=== PATIENT | female | born 1960 | race Caucasian/White ===

== ENCOUNTER 2018-08-01 19:56 | Inpatient (IN) ==
[2018-08-01] MEDS: Heparin 25,000 UNIT/500 ML D5W 25,000 UNIT/500 ML BAG IVC SCH (22:00)
[2018-08-01] MEDS: Nitroglycerin 25 MG/250 ML INFUS..BTL IVC SCH (23:18)
--- NOTE | 2018-08-01 23:28 | Internal Med History&Physical ---
Date of Encounter: 08/01/18 Internal Medicine - H&P: HPI History of present illness: Ms. Hess is a 58 year old female Past Med Surg Social Fam HX - Past Medical History Medical history: diabetes, GERD, hyperlipidemia, hypertension, kidney stones, other Additional medical history: angina, diabetic neuropathy Psychiatric history: anxiety, depression - Past Surgical History Surgical History: other Additional surgical history: Tubal ligation. Carpal tunnel. cardiac cath, no stents - Social History Smoking Status: Never smoker Smokeless Tobacco Status: No Alcohol use: none Drug use: none - Family History Mother Hx Family Cardiac Disorders: Yes Internal Medicine - H&P: Meds Aspirin 81 mg PO DAILY 06/05/16 [History] Citalopram [CeleXA] 20 mg PO DAILY 06/05/16 [History] Lisinopril [Zestril] 20 mg PO DAILY 06/05/16 [History] Metoprolol XL (24 HR) Succ [Toprol Xl] 25 mg PO DAILY 06/05/16 [History] Nitroglycerin [Nitrostat] 0.4 mg SL DAILY PRN 06/05/16 [History] Simvastatin [Zocor] 40 mg PO QPM 06/05/16 [History] hydroCHLOROthiazide [Hydrochlorothiazide] 25 mg PO DAILY 06/05/16 [History] metFORMIN [Glucophage] 500 mg PO DAILY 06/05/16 [History] Gabapentin [Neurontin] 300 mg PO HS 02/12/17 [History] Meloxicam [Mobic] 15 mg PO DAILY 02/12/17 [History] Multivitamin [One Daily Multivitamin] 1 each PO DAILY 02/12/17 [History] OxyCODONE/APAP 10/325 [Percocet 10/325 MG] 1 each PO Q6HR PRN #26 tablet 02/12/17 [Rx] Cyclobenzaprine [Flexeril] 10 mg PO TID 08/01/18 [History] Dicyclomine Hcl [Bentyl] 20 mg PO QID 08/01/18 [History] Levothyroxine [Synthroid] 25 mcg PO DAILY 08/01/18 [History] Lidocaine Patch [Lidoderm 5% patch] 1 each TP DAILY 08/01/18 [History] Melatonin [Melatin] 3 mg PO HS 08/01/18 [History] raNITIdine HCl [Zantac] 150 mg PO BID 08/01/18 [History] Allergy/AdvReac Type Severity Reaction Status Date / Time No Known Allergies Allergy Verified 02/12/17 11:59 All Systems PM: A 10-system review of systems was performed and is negative for pertinent findings except as documented above in the HPI. - Constitutional Vitals: Temp Pulse Resp BP Pulse Ox 98.2 F 100 14 166/82 98 08/01/18 22:22 08/01/18 22:22 08/01/18 22:22 08/01/18 22:22 08/01/18 22:22 - Time Spent With Patient Total time spent is greater than 50% in coordination of care (as documented) at patient's floor/unit and/or counseling patient:
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
[2018-08-02] MEDS ORDERED: Naloxone 0.4 MG/ML INJ IVP PRN (00:29)
[2018-08-02] MEDS ORDERED: D5% in Water 1,000 ML IVC PRN (00:32)
[2018-08-02] MEDS ORDERED: *HR* Dextrose 50 % in Water (Syg) 50 ML SYRINGE IVP PRN (00:32)
[2018-08-02] MEDS ORDERED: Dextrose Gel 15 GM/37.5 ML TUBE PO PRN ×2 (00:32)
[2018-08-02] MEDS ORDERED: *HR* Heparin 5,000 UNIT/ML VIAL IVP PRN (02:30)
[2018-08-02] MEDS ORDERED: *HR* Heparin 5,000 UNIT/ML VIAL IVP ONE (02:30)
[2018-08-02 06:38] LABS: Prothrombin Time 11.8 Seconds (9.4-12.1)
[2018-08-02 06:39] LABS: Activated Partial Thrombo Time 47.7 Seconds (26.0-36.0)
[2018-08-02 06:41] LABS: Hematocrit 37.5 % (35.3-44.9); Hemoglobin 12.5 g/dL (11.5-15.4); Mean Corpuscular HGB Conc 33.3 g/dL (31.6-35.5); Mean Corpuscular Hemoglobin 29.6 pg (28.0-33.3); Mean Corpuscular Volume 88.9 fL (83.0-100.0); Mean Platelet Volume 10.3 fL (9.4-12.4); Platelet Count 378 K/mcL (140-400); Red Blood Count 4.22 M/mcL (3.82-4.97); Red Cell Distribution Width 12.6 % (11.5-14.5)
[2018-08-02 06:42] LABS: Basophils % 0.4 %; Eosinophils # 0.1 K/mcL (0.0-0.6); Eosinophils % 0.8 %; Hemoglobin 12.8 g/dL (11.5-15.4); Immature Granulocytes % 0.1 % (0-4); Lymphocytes # 2.8 K/mcL (0.6-4.6); Lymphocytes % 33.4 %; Mean Corpuscular HGB Conc 32.8 g/dL (31.6-35.5); Mean Corpuscular Hemoglobin 29.4 pg (28.0-33.3); Mean Corpuscular Volume 89.4 fL (83.0-100.0); Mean Platelet Volume 10.7 fL (9.4-12.4); Monocytes # 0.7 K/mcL (0.0-1.3); Monocytes % 8.3 %; Neutrophils # 4.8 K/mcL (1.6-8.9); Platelet Count 392 K/mcL (140-400); Red Blood Count 4.36 M/mcL (3.82-4.97); Red Cell Distribution Width 12.4 % (11.5-14.5)
[2018-08-02 06:53] LABS: Alanine Aminotransferase 23 Units/L (7-52); Albumin 4.2 g/dL (3.5-5.7); Albumin/Globulin Ratio 1.5 (1.1-2.2); Alkaline Phosphatase 86 Units/L (34-104); Aspartate Amino Transferase 23 Units/L (13-39); BUN/Creatinine Ratio 31 (6-26); Bilirubin,Total 0.4 mg/dL (0.3-1.0); Blood Urea Nitrogen 18 mg/dL (8-23); Calcium 9.3 mg/dL (8.6-10.3); Carbon Dioxide 25 mEq/L (23-29); Chloride 101 mEq/L (98-107); Chol/HDL Ratio 3.4 (0-4.9); Cholesterol 184 mg/dL (< 200); Globulin 2.8 g/dL (2.4-3.5); Glucose 125 mg/dL (70-105); HDL Cholesterol 54 mg/dL (40-59); LDL Cholesterol,Calculated 102 mg/dL (0-99); Magnesium 1.8 mg/dL (1.6-2.6); Osmolality,Calculated 287 (280-300); Phosphorous 3.8 mg/dL (2.7-4.5); Potassium 3.8 mEq/L (3.5-5.1); Sodium 137 mEq/L (136-145); Triglycerides 139 mg/dL (< 150); eGFR For Non-African Americans > 60 (> 60)
[2018-08-02] MEDS: *HR* Heparin 5,000 UNIT/ML VIAL IVP PRN (07:34)
[2018-08-02] MEDS: Insulin LISPRO 300 UNITS/3 ML VIAL SQ SCH ×4 (07:36→19:48)
[2018-08-02] MEDS ORDERED: D5% in 0.45% NACL 1,000 ML IVC SCH (08:30)
[2018-08-02] MEDS: Aspirin Enteric Coated 81 MG Tablet PO SCH (09:52)
[2018-08-02] MEDS: Metoprolol XL (24 HR) Succ 25 MG TAB.ER.24H PO SCH (09:52)
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
[2018-08-02] MEDS ORDERED: Insulin LISPRO 300 UNITS/3 ML VIAL SQ SCH (12:00)
[2018-08-02] MEDS: Heparin 25,000 UNIT/500 ML D5W 25,000 UNIT/500 ML BAG IVC SCH (13:28)
--- NOTE | 2018-08-02 15:11 | Internal Med Progress Note ---
Hospitalist Progress Note - Encounter Date of Encounter: 08/02/18 Time of Encounter: 15:09 - Subjective Interval History: I have seen and evaluated the patient at bedside. she reports that the chest pain has improved and it is about a 3/10 now. denies shortness of breath, nausea or vomiting. - Exam Vitals: Temp Pulse Resp BP Pulse Ox 98.2 F 80 17 141/80 93 08/02/18 11:29 08/02/18 11:29 08/02/18 11:29 08/02/18 11:29 08/02/18 11:29 Exam: Vitals: Reviewed. General: Alert and oriented x4. In mild distress due to chest discomfort Skin: Normal color, no rash, no lesions. HEENT: EOM, pupils equal, round and reactive. Cardiovascular: RRR, Normal S1 & S2, no rubs, murmurs or gallops. Lungs: CTA b/l, no wheezes or crackles. Abdomen: Soft, non-tender, no rigidity. Extremities: No deformity, no edema or tenderness, no joint swelling or clubbing. Neurological: Normal cognition and motor skills. Rest of the physical exam is non contributory - Assessment and Plan (1) Chest pain Current Visit: Yes Status: Acute Assessment and Plan: improving chest pain. patient evaluated by cardiolgy service, recommended medical management and possible LHC on Saturday. continue heparin drip, aspirin, statin and bb Nitroglycerin 0.4mg/PO Q5mins x3 for chest pain PRN (2) Diabetes Current Visit: Yes Status: Chronic Assessment and Plan: blood sugar has been well controlled. will start carb controlled diet and NPO at Midnight on Saturday continue Lispro medium dose sliding scale ac. (3) Hyperlipidemia Current Visit: Yes Status: Chronic Assessment and Plan: Continue simvastatin 20 mg by mouth at bedtime. (4) Hypertension Current Visit: Yes Status: Chronic Assessment and Plan: BP has been well controlled. Continue metoprolol 25 mg by mouth daily. (5) Hypothyroidism Current Visit: Yes Status: Chronic Assessment and Plan: We will resume home medication. On levothyroxine 25mcg/PO Daily. DVT Prophylaxis: Patient is a heparin drip due to chest pain possible unstable angina. - Summary of Assessment and Plan Summary of Assessment and Plan: Patient to remain in the hospital due to chest pain possible unstable angina, is scheduled for possible [facility] on Saturday. - Time Spent with Patient Total time spent is greater than 50% in coordination of care (as documented) at patient's floor/unit and/or counseling patient: Greater than 35 minutes (45) Plan of Care Discussed with: patient (and the nurse.) Internal Medicine: Result - Labs CBC & Chem 7: 08/02/18 06:10 08/02/18 06:10 Labs: Short CBC 08/02/18 08/02/18 Range/Units 06:10 06:10 WBC 8.4 8.1 (4.3-11.1) K/mcL Hgb 12.8 12.5 (11.5-15.4) g/dL Hct 39.0 37.5 (35.3-44.9) % Plt Count 392 378 (140-400) K/mcL Neutrophils # 4.8 (1.6-8.9) K/mcL BMP 08/02/18 06:10 Sodium 137 Potassium 3.8 Chloride 101 Carbon Dioxide 25 BUN 18 Creatinine 0.58 L Glucose 125 H Calcium 9.3 Cardiac Enzymes 08/01/18 08/02/18 Range/Units 23:27 06:10 Troponin I 0.07 H* 0.04 H* (< 0.04) ng/mL Liver Function 08/02/18 Range/Units 06:10 Total Bilirubin 0.4 (0.3-1.0) mg/dL AST 23 (13-39) Units/L ALT 23 (7-52) Units/L Alkaline Phosphatase 86 (34-104) Units/L Albumin 4.2 (3.5-5.7) g/dL - ABG Interpretation ABG results: PT/INR, D-dimer PT 11.8 Seconds (9.4-12.1) 08/02/18 06:10 Consult Discharge Plan - Plan Referrals: Theresa Shields [Primary Care Provider] - (1) Chest pain Qualifiers: Chest pain type: chest pain due to myocardial ischemia Ischemic chest pain type: unspecified angina pectoris type Qualified Code(s): I25.9 - Chronic ischemic heart disease, unspecified (2) Diabetes Qualifiers: Diabetes mellitus type: type 2 Diabetes mellitus terminal operations manager insulin use: without intermediate use Diabetes mellitus complication status: without complication Qualified Code(s): E11.9 - Type 2 diabetes mellitus without complications (3) Hyperlipidemia Qualifiers: Hyperlipidemia type: unspecified Qualified Code(s): E78.5 - Hyperlipidemia, unspecified (4) Hypertension Qualifiers: Hypertension type: essential hypertension Qualified Code(s): I10 - Essential (primary) hypertension (5) Hypothyroidism Qualifiers: Hypothyroidism type: unspecified Qualified Code(s): E03.9 - Hypothyroidism, unspecified
[2018-08-03 04:35] LABS: Basophils # 0.1 K/mcL (0.0-0.2); Basophils % 0.6 %; Eosinophils # 0.1 K/mcL (0.0-0.6); Eosinophils % 1.3 %; Hematocrit 37.5 % (35.3-44.9); Hemoglobin 12.7 g/dL (11.5-15.4); Immature Granulocytes % 0.2 % (0-4); Lymphocytes # 3.7 K/mcL (0.6-4.6); Lymphocytes % 39.5 %; Mean Corpuscular HGB Conc 33.9 g/dL (31.6-35.5); Mean Corpuscular Hemoglobin 30.2 pg (28.0-33.3); Mean Corpuscular Volume 89.1 fL (83.0-100.0); Mean Platelet Volume 10.5 fL (9.4-12.4); Monocytes # 0.8 K/mcL (0.0-1.3); Neutrophils # 4.7 K/mcL (1.6-8.9); Platelet Count 372 K/mcL (140-400); Red Blood Count 4.21 M/mcL (3.82-4.97); Red Cell Distribution Width 12.6 % (11.5-14.5); Segmented Neutrophils % 50.4 %
[2018-08-03 04:53] LABS: BUN/Creatinine Ratio 23 (6-26); Blood Urea Nitrogen 15 mg/dL (8-23); Calcium 9.2 mg/dL (8.6-10.3); Carbon Dioxide 25 mEq/L (23-29); Chloride 104 mEq/L (98-107); Glucose 130 mg/dL (70-105); Magnesium 1.9 mg/dL (1.6-2.6); Osmolality,Calculated 287 (280-300); Phosphorous 3.7 mg/dL (2.7-4.5); Potassium 3.8 mEq/L (3.5-5.1); Sodium 137 mEq/L (136-145); eGFR For Non-African Americans > 60 (> 60)
[2018-08-03] MEDS: Levothyroxine 25 MCG TABLET PO SCH (05:33)
--- NOTE | 2018-08-03 07:02 | Event Note ---
Date of Encounter: 08/03/18 Time of Encounter: 06:29 Informed by nurse of patient reporting increased chest pain. Assessed patient at bedside. EKG obtained shows sinus rhythm. Pain now decreasing with increase in nitro drip. Vitals stable with slightly elevated blood pressure from baseline with systolic in 160's, now decreasing to 130's and patient reporting decrease in chest pain and feeling much more comfortable. Troponin ordered. Advised staff to notify of any changes.
[2018-08-03] MEDS: Insulin LISPRO 300 UNITS/3 ML VIAL SQ SCH ×4 (08:00→20:40)
[2018-08-03] MEDS: Aspirin Enteric Coated 81 MG Tablet PO SCH (09:21)
[2018-08-03] MEDS: Metoprolol XL (24 HR) Succ 25 MG TAB.ER.24H PO SCH (09:21)
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
[2018-08-03] MEDS: Heparin 25,000 UNIT/500 ML D5W 25,000 UNIT/500 ML BAG IVC SCH ×2 (12:44→12:46)
[2018-08-03] MEDS: Nitroglycerin 25 MG/250 ML INFUS..BTL IVC SCH ×2 (12:45→12:46)
--- NOTE | 2018-08-03 13:28 | Internal Med Progress Note ---
Hospitalist Progress Note - Encounter Date of Encounter: 08/03/18 Time of Encounter: 13:25 - Subjective Interval History: I have seen and evaluated the patient at bedside. Patient reports no chest pain during my evaluation, but reports that she had an episode of chest pain today morning. denies headache, nausea or vomiting. - Exam Vitals: Temp Pulse Resp BP Pulse Ox 98.0 F 71 16 128/71 93 08/03/18 10:57 08/03/18 10:57 08/03/18 10:57 08/03/18 10:57 08/03/18 10:57 Exam: Vitals: Reviewed. General: Alert and oriented x4. In mild distress due to concern about potential results of LHC Skin: Normal color, no rash, no lesions. Cardiovascular: RRR, Normal S1 & S2, no rubs, murmurs or gallops. Lungs: CTA b/l, no wheezes or crackles. Abdomen: Soft, non-tender, no rigidity. NABS in all 4 quadrants. Extremities: No edema Neurological: Normal cognition. CN II-XII intact. Rest of the physical exam is non contributory - Assessment and Plan (1) Chest pain Current Visit: Yes Status: Acute Assessment and Plan: possible unstable angina patient on a nitro drip, consider titrating of if patient remains chest pain free scheduled for [facility] tomorrow heparin drip Continue metoprolol 25 mg by mouth daily. Neurology recommendation appreciated. On aspirin 81 mg by mouth Nothing by mouth at midnight (2) Diabetes Current Visit: Yes Status: Chronic Assessment and Plan: Blood sugar has been well controlled. Continue carb controlled diet. Lispro sliding scale medium dose before meals. (3) Hyperlipidemia Current Visit: Yes Status: Chronic Assessment and Plan: Continue simvastatin 40 mg by mouth daily. (4) Hypertension Current Visit: Yes Status: Chronic Assessment and Plan: Blood pressure has been well controlled. Patient on metoprolol 25 mg by mouth daily. (5) Hypothyroidism Current Visit: Yes Status: Chronic Assessment and Plan: On levothyroxine 25mcg/PO Daily. DVT Prophylaxis: Patient is on heparin drip. - Summary of Assessment and Plan Summary of Assessment and Plan: Patient is a scheduled for a [facility] tomorrow morning - Time Spent with Patient Total time spent is greater than 50% in coordination of care (as documented) at patient's floor/unit and/or counseling patient: Greater than 35 minutes (40) Plan of Care Discussed with: patient (and the nurse.) Internal Medicine: Result - Labs CBC & Chem 7: 08/03/18 03:46 08/03/18 03:46 Labs: Short CBC 08/03/18 Range/Units 03:46 WBC 9.4 (4.3-11.1) K/mcL Hgb 12.7 (11.5-15.4) g/dL Hct 37.5 (35.3-44.9) % Plt Count 372 (140-400) K/mcL Neutrophils # 4.7 (1.6-8.9) K/mcL BMP 08/03/18 03:46 Sodium 137 Potassium 3.8 Chloride 104 Carbon Dioxide 25 BUN 15 Creatinine 0.65 Glucose 130 H Calcium 9.2 Cardiac Enzymes 08/03/18 Range/Units 06:47 Troponin I < 0.03 (< 0.04) ng/mL - ABG Interpretation ABG results: PT/INR, D-dimer PT 11.8 Seconds (9.4-12.1) 08/02/18 06:10 - Impressions Impressions Echocardiogram 08/02/18 02:34 Impressions: LVEF 65%. Normal LV chamber size, wall thickness and systolic function. Mild left ventricular diastolic dysfunction. Normal right ventricular structure and function. No significant valvular dysfunction. No pulmonary hypertension. Left Ventricular Wall Motion: Rest Echo Findings All wall segments showed normal motion. Findings: Study Quality * Technically adequate exam. ECG Findings * Normal sinus rhythm. Left Ventricle * LVEF 65%. * Normal LV chamber size, wall thickness and systolic function. * Mild left ventricular diastolic dysfunction. Right Ventricle * Normal right ventricular structure and function. Left Atrium * Normal left atrial size. Right Atrium * Normal right atrial size. Interatrial Septum * Interatrial septum not well evaluated. * No evidence of PFO by color Doppler. Aortic Valve * Trileaflet aortic valve with normal function. * No aortic stenosis. * No aortic regurgitation. Mitral Valve * Normal mitral valve structure. * No mitral stenosis. * Trace mitral regurgitation. Tricuspid Valve * Normal tricuspid valve structure. * No tricuspid stenosis. * Trace tricuspid regurgitation. * Estimated RVSP is 19 mmHg. * Estimated RA pressure is 3 mmHg. * No pulmonary hypertension. Pulmonic Valve * Pulmonic valve is not well visualized. * No pulmonic stenosis. * No pulmonic regurgitation. Aorta * Normally sized aortic root. Pericardium * The pericardium appears normal. IVC * Normal IVC dimensions and inspiratory collapse. Consult Discharge Plan - Plan Referrals: Theresa Shields [Primary Care Provider] - (1) Chest pain Qualifiers: Chest pain type: chest pain due to myocardial ischemia Ischemic chest pain type: unspecified angina pectoris type Qualified Code(s): I25.9 - Chronic ischemic heart disease, unspecified (2) Diabetes Qualifiers: Diabetes mellitus type: type 2 Diabetes mellitus residential insulin use: without residential use Diabetes mellitus complication status: without complication Qualified Code(s): E11.9 - Type 2 diabetes mellitus without complications (3) Hyperlipidemia Qualifiers: Hyperlipidemia type: unspecified Qualified Code(s): E78.5 - Hyperlipidemia, unspecified (4) Hypertension Qualifiers: Hypertension type: essential hypertension Qualified Code(s): I10 - Essential (primary) hypertension (5) Hypothyroidism Qualifiers: Hypothyroidism type: unspecified Qualified Code(s): E03.9 - Hypothyroidism, unspecified
[2018-08-03] MEDS: *HR* Heparin 5,000 UNIT/ML VIAL IVP PRN (23:47)
[2018-08-04] MEDS: Levothyroxine 25 MCG TABLET PO SCH (05:16)
[2018-08-04] MEDS: Insulin LISPRO 300 UNITS/3 ML VIAL SQ SCH ×2 (07:45→15:53)
[2018-08-04] MEDS: Aspirin Enteric Coated 81 MG Tablet PO SCH (07:50)
[2018-08-04] MEDS: Metoprolol XL (24 HR) Succ 25 MG TAB.ER.24H PO SCH (07:50)
--- NOTE | 2018-08-04 10:26 | Internal Med Progress Note ---
Hospitalist Progress Note - Encounter Date of Encounter: 08/04/18 Time of Encounter: 10:23 - Subjective Interval History: I have seen and evaluated the patient at bedside. Patient reports 3 out of 5 pressure-like chest discomfort, she denies shortness of breath or lightheadedness. - Exam Vitals: Temp Pulse Resp BP Pulse Ox 97.7 F 76 16 134/69 94 08/04/18 06:40 08/04/18 06:40 08/04/18 06:40 08/04/18 06:40 08/04/18 06:40 Exam: Vitals: Reviewed. General: Alert and oriented x4. In mild distress due to chest pressure. Skin: Normal color, no rash, no lesions. Cardiovascular: RRR, Normal S1 & S2, no rubs, murmurs or gallops. Lungs: CTA b/l, no wheezes or crackles. Abdomen: Soft, non-tender, no rigidity. NABS in all 4 quadrants. Extremities: No edema. Strength is 5 out of 5 in the upper and lower extremity. Neurological: Normal cognition. CN II-XII intact. Rest of the physical exam is non contributory - Assessment and Plan (1) Chest pain Current Visit: Yes Status: Acute Assessment and Plan: Possible unstable angina. Patient is a scheduled for a [facility] On a nitro and Heparin drip NPO D5NS@50mls/hr for maintenance fluid, to avoid hypoglycemia Accu checks every 6 hours plus lispro sliding scale low-dose every 6 hours. Continue metoprolol 25 mg by mouth daily. On aspirin 81 mg by mouth daily. (2) Diabetes Current Visit: Yes Status: Chronic Assessment and Plan: Blood sugar has been well controlled. Patient is nothing by mouth for procedure, on Accu-Cheks every 6 hours. Plus lispro sliding scale low-dose every 6 hours. (3) Hyperlipidemia Current Visit: Yes Status: Chronic Assessment and Plan: Continue simvastatin. (4) Hypertension Current Visit: Yes Status: Chronic Assessment and Plan: Blood pressure has been well controlled. Patient is on a beta shilpa. (5) Hypothyroidism Current Visit: Yes Status: Chronic Assessment and Plan: Continue levothyroxine on her home dose. DVT Prophylaxis: Patient is on heparin drip due to possible unstable angina scheduled for a heart catheter - Summary of Assessment and Plan Summary of Assessment and Plan: Contusion to remain in the hospital is scheduled for heart catheterization. Potential discharge tomorrow. - Time Spent with Patient Total time spent is greater than 50% in coordination of care (as documented) at patient's floor/unit and/or counseling patient: Greater than 35 minutes (40) Plan of Care Discussed with: patient (and the nurse.) Internal Medicine: Result - Labs CBC & Chem 7: 08/03/18 03:46 08/03/18 03:46 - ABG Interpretation ABG results: PT/INR, D-dimer PT 11.8 Seconds (9.4-12.1) 08/02/18 06:10 Consult Discharge Plan - Plan Referrals: Theresa Shields [Primary Care Provider] - 08/25/18 10:00 am (Please follow as schedule....) (1) Chest pain Qualifiers: Chest pain type: chest pain due to myocardial ischemia Ischemic chest pain type: unspecified angina pectoris type Qualified Code(s): I25.9 - Chronic ischemic heart disease, unspecified (2) Diabetes Qualifiers: Diabetes mellitus type: type 2 Diabetes mellitus superintendent container terminal insulin use: without fci use Diabetes mellitus complication status: without complication Qualified Code(s): E11.9 - Type 2 diabetes mellitus without complications (3) Hyperlipidemia Qualifiers: Hyperlipidemia type: unspecified Qualified Code(s): E78.5 - Hyperlipidemia, unspecified (4) Hypertension Qualifiers: Hypertension type: essential hypertension Qualified Code(s): I10 - Essential (primary) hypertension (5) Hypothyroidism Qualifiers: Hypothyroidism type: unspecified Qualified Code(s): E03.9 - Hypothyroidism, unspecified
[2018-08-04] MEDS ORDERED: D5% in 0.45% NACL 1,000 ML IVC SCH (10:30)
[2018-08-04] MEDS: Heparin 25,000 UNIT/500 ML D5W 25,000 UNIT/500 ML BAG IVC SCH (10:33)
[2018-08-04] MEDS: Nitroglycerin 25 MG/250 ML INFUS..BTL IVC SCH (10:33)
[2018-08-04] MEDS ORDERED: Insulin LISPRO 300 UNITS/3 ML VIAL SQ SCH ×2 (12:00→21:00)
[2018-08-04] MEDS ORDERED: *HR* Heparin 10,000 UNIT/10 ML VIAL ONE ×2 (13:26→13:27)
[2018-08-04] MEDS ORDERED: Heparin 1,000 UNITS/500 mL 500 ML ONE ×2 (13:26→13:27)
[2018-08-04] MEDS ORDERED: *HR* Bivalirudin 250 MG VIAL IVC ONE (13:26)
[2018-08-04] MEDS ORDERED: 0.9 % Sodium Chloride 1,000 ML ONE ×4 (13:27→13:28)
[2018-08-04] MEDS ORDERED: *HR* Midazolam HCl 2 MG/2 ML VIAL ONE (13:27)
[2018-08-04] MEDS ORDERED: ISOVUE-370 200 ML INFUS..BTL ONE ×2 (13:27→13:28)
[2018-08-04] MEDS ORDERED: Nitroglycerin 1,000 MCG/10 ML VIAL IV ONE ×2 (13:27→13:28)
--- NOTE | 2018-08-04 13:47 | Pre-Sedation Evaluation ---
Pre-sedation evaluation - Pre-sedation checklist Procedure: [facility] Recent Vitals: Last Vital Signs Temp 97.6 F 08/04/18 11:44 Pulse 70 08/04/18 11:44 Resp 16 08/04/18 11:44 BP 153/78 08/04/18 11:44 Pulse Ox 95 08/04/18 11:44 H&P (including ROS) documented in medical record: Yes Previous reaction to sedatives/anesthetics: No Dietary Status: NPO after Midnight Airway Assessment: Patient can open mouth completely, TMJ function normal Dentition: No loose teeth or bridges Possible difficult airway: No ASA Classification *see protocol: CLASS III-Severe systemic disease Plan of Care: Pt appropriate candidate for procedure/moderate/conscious sedation, Risks/benefits of procedure/sedation discussed w/ patient/family, If not NPO; Risk of intake outweiged by necessity to perform procedure Cardiac Registry (Cardio Only) - Functional Capacity Functional Capacity: >=4 METS without symptoms - Clincal Frailty Scale Clinical Frailty Scale: Managing Well
--- NOTE | 2018-08-04 13:59 | Electrocardiograph Report ---
[place] [address] Test Date: 2018-08-01 Pat Name: Keila Hess Department: 109 Room: 2A14 Gender: F Data Reduction Technician: : 1960 Requested By: Fernando Olson Order Number: [id number] Reading MD: Ronald Baig Measurements Intervals [place] Rate: 97 P: 53 WI: 136 QRS: -26 QRSD: 92 T: 19 QT: 352 QTc: 406 Interpretive Statements SINUS RHYTHM BORDERLINE LEFT AXIS DEVIATION VOLTAGE CRITERIA FOR LVH MINIMAL ST DEPRESSION Electronically Signed On 08-04-2018 13:57:47 EST by Ronald Baig
--- NOTE | 2018-08-04 14:17 | Event Note ---
Date of Encounter: 08/04/18 Time of Encounter: 14:00 - Cardiology Event Note LHC demonstrated minimal CAD. Elevated troponin likely demand ischemia in the setting of elevated blood pressure. Cardiology will sign-off. Recommend close outpatient follow-up with PCP.
--- NOTE | 2018-08-04 14:35 | Invasive Diagnostic Lab Proc ---
Name: Keila Hess Date of Study: 08/04/2018 Date: 1960 Ht: 64.0in Medical Record#: [id number] Age: 58 Wt: 169.32lb Gender: Female BSA: 1.82 Order #: [id number] BMI: 29.05 Physicians Procedure Physician: Jose C Galvin DO Referring MD: Referring MD: Staff Name Position Time In [facility], Diane RT (R) Monitor 01:33 PM Lilliana May RN Mid Level Clinician 01:33 PM Diane Srinivasan RT (R) Scrub 01:33 PM Indications Indication Non-Stemi Procedures Performed Procedure L HRT ARTERY/VENTRICLE ANGIO Pre-Procedure Checklist Informed consent is complete signed and on chart. H&P is on chart. ID band is on and ID verified with patient. Patient NPO for procedure The procedure was described for the patient and questions were answered. Blood Pressure: 134/69 ECG is on chart. Rhythm: NSR Plan of Care Patient will tolerate the procedure without complications. Adequate level of comfort will be maintained. Hemodynamics will remain stable Patient will recover from procedure without complications. Respiratory function will be maintained. Cardiac rhythm will remain stable. Patient temperature will be maintained. Patient and/or family have verbalized understanding of the procedure. Patient Education Chief Complaint/Reason for Test: Cardiac Cath Developmental Category: Adult (18-64 years) Developmentally Appropriate for Age: Yes Learning Barriers: None Education Needs: Procedure Education Method: Verbal Information Taught: Cardiac Cath Educational Evaluation: Able to repeat information Intravenous Access Time IV Size Location DC'd Fluid/Drip Rate Units RN 20g 1 /" Patent On Arrival Lt Arm 0.9NaCl 25 ml/hr Lilliana May RN Allergies No Known Allergies Vital Signs Time BP (mmHg) HR (bpm) O2 Sat. RR (bpm) LOC 134 / 69 76 94 % 16 01:58 PM / % 5 = Fully awake and oriented or at pre-proc level 01:48 PM 176 / 90 73 98 % 23 01:52 PM 169 / 80 70 96 % 18 01:57 PM 149 / 78 69 97 % 17 02:02 PM 130 / 85 73 99 % 21 02:07 PM 173 / 86 76 98 % 13 02:12 PM 164 / 83 72 98 % 14 02:17 PM 175 / 87 70 97 % 11 02:22 PM 127 / 97 75 95 % 16 Procedural Medications Time Medication Dose Units Method Given By 01:48 PM Oxygen 2 L/min nasal cannula Lilliana May RN 01:49 PM Versed 2 mg Intravenous Lilliana May RN 01:59 PM Lidocaine 2% 10 ml Subcutaneous Jose C Galvin DO ASA Classification: CLASS II- Mild systemic disease (i.e. well-controlled diabetes, hypertension, asthma, cigarette smoking) Emelia Score Preprocedure Postprocedure Activity 2- Moves 4 extremities sustained head lift Activity 2- Moves 4 extremities sustained head lift Circulation 2- SBP +/= 20 points of pre-anesthetic level Circulation 2- SBP +/= 20 points of pre-anesthetic level Consciousness 2- Awake and alert oriented x 3 Consciousness 2- Awake and alert oriented x 3 O2 Saturation 2- Able to maintain O2 satruation of 92% on room air O2 Saturation 2- Able to maintain O2 satruation of 92% on room air Respiratory 2- Able to deep breathe and cough well Respiratory 2- Able to deep breathe and cough well Total Score 10 Total Score 10 Contrast Agent: Isovue Diagnostic Contrast: 50 ml Total Contrast: 50 ml Fluoro Dose: 2159 mGy Procedure Log Time Note Enter By 01:33 PM Pt arrived to dental laboratory technology teacher 2 at 13:33 tsites 01:33 PM Diane Mcrae RT (R) Position: Monitor Time in: 13:33 tsites 01:33 PM Lilliana May RN Position: Mid Level Clinician Time in: 13:33 tsites 01:33 PM Diane rSinivasan RT (R) Position: Scrub Time in: 13:33 tsites 01:33 PM Patient charges- Angio tray pack, Navilyst 3mm J, Pulse Oximetry and ACIST tubing and transducer tsites 01:33 PM Case Delayed No tsites 01:33 PM Physician arrived 13:33 tsites 01:33 PM Meet and greet completed tsites 01:33 PM Sign in performed according to hospital policy. Informed consent was obtained. tsites 01:33 PM Procedure start 13:33 tsites 01:34 PM CathStat 01:46 PM Vitals capture started with the following parameters, Patient=Adult, Interval=5 min, Initial Diqzspqd=374 mmHg, Deflation Rate=5 mmHg, Cuff placed on Right Arm 01:46 PM Recorded ECG: HR=75 Condition=Condition 1 01:48 PM Hair removed from procedure site in holding area using clippers. Bilateral groin prepped with Chloraprep by Diane Mcrae (R), then patient was draped. Skin intact. tsites 01:48 PM Clinical Presentation: Stable angina tsites 01:48 PM Time: 13:48 Oxygen on at 2 L/min per nasal cannula by Lilliana May RN tsites 01:48 PM HR=73 bpm, YEZL=348/90 mmhg, SpO2=98.0 %, Resp=23 B/min, EtCO2=30 mmHg 01:49 PM Recorded ECG: HR=70 Condition=Condition 1 01:49 PM Time: 13:49 Versed 2 mg Intravenous Given by Lilliana May RN tsites 01:52 PM HR=70 bpm, AAZQ=419/80 mmhg, SpO2=96.0 %, Resp=18 B/min, Temp=30 deg C 01:57 PM HR=69 bpm, DJBQ=705/78 mmhg, SpO2=97.0 %, Resp=17 B/min, EtCO2=30 mmHg 01:58 PM Time: 13:58 Patient comfortable and pain free: Yes tsites 01:58 PM Time: 13:58LOC: 5 = Fully awake and oriented or at pre-proc level tsites 01:58 PM Time out was performed according to hospital policy. Conscious sedation and anesthesia was achieved (see medication log with in this report above) tsites 01:59 PM Time: 13:59 10 ml Lidocaine 2% to right groin Subcutaneous Given by Jose C Galvin DO tsites 02:00 PM Micro-Introducer Kit utilized for sheath placement tsites 02:01 PM Access obtained by percutaneous puncture. 4Fr 10cm Micro kit sheath placed in right Femoral artery. [id number] tsites 02:01 PM Sheath exchanged for a 6 Fr 11 cm [place] [place] sheath [id number] tsites 02:02 PM HR=73 bpm, CEOX=947/85 mmhg, SpO2=99.0 %, Resp=21 B/min, EtCO2=30 mmHg 02:03 PM 6Fr FR 4 catheter inserted over the wire C tsites 02:04 PM 0.035 260cm Navilyst 3mmJ wire [id number] tsites 02:04 PM Recorded Pressure: LV, HR=68, Condition=Condition 1 (Left Ventricle) LV 158/3/12 02:04 PM Recorded Pressure: LV, HR=76, Condition=Condition 1 (Left Ventricle) LV 171/6/14 02:04 PM Recorded Pressure: LV, Ao, HR=71, Condition=Condition 1 (Left Ventricle) LV 169/-4/13, (Aorta) Ao 158/46/101 02:05 PM Catheter crossed the aortic valve and was selectively placed in the left ventricle. Pressures recorded on pullback for left heart catheterization. tsites 02:05 PM Bolus angiogram of left Ventricle complete: ml/sec for a total of mls tsites 02:05 PM RCA angiography performed in multiple views. tsites 02:05 PM wire reinserted catheter removed tsites 02:05 PM 6Fr FL 4 catheter inserted over the wire DNC tsites 02:06 PM Recorded Pressure: Ao, HR=71, Condition=Condition 1 (Aorta) Ao 156/68/98 02:07 PM LCA angiography performed in multiple views. tsites 02:07 PM Coronary Dominance: Left tsites 02:07 PM HR=76 bpm, ZPNF=656/86 mmhg, SpO2=98.0 %, Resp=13 B/min, EtCO2=28 mmHg 02:07 PM Bolus angiogram of right Femoral complete: tsites 02:08 PM Catheter removed tsites 02:08 PM Procedure completed at 14:08 08/04/2018 tsites 02:08 PM Sign out completed: Radiation Dose 216 mGy, 2159 cGy/cm2 Fluoro Time: 1.2 Isovue 370 - 200ml contrast 50 ml given by Jose C Galvin DO. Complications: None. 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 Cardiac Rehab Consult needed: YesConfirmed administered medications: Yes tsites 02:09 PM Isovue 370 - 200ml,1 Bottle(s) used. tsites 02:09 PM Arterial sheath pulled using manual compression and V+ Pad for 15 minutes by Diane Srinivasan RT (R) tsites 02:09 PM Estimated Blood Loss: minimal tsites 02:09 PM Post ECG NSR tsites 02:09 PM Post Blood Pressure 173/86 tsites 02:10 PM 14:09 Post Pulses Bilateral DP & PT 2+ tsites 02:10 PM Information taught Cardiac Cath and V+ Pad tsites 02:10 PM Education needs Procedure, Plan of Care, and Responsibilities of Patient in Care tsites 02:10 PM Learning barriers :None tsites 02:10 PM Education Methods Verbal tsites 02:10 PM Education evaluation Able to repeat information tsites 02:11 PM Report given to lanie OTBIAS Pt taken to 2A Room #14. 14:11 tsites 02:12 PM HR=72 bpm, ATAB=433/83 mmhg, SpO2=98.0 %, Resp=14 B/min, EtCO2=32 mmHg 02:14 PM Delay to floor No tsites 02:17 PM HR=70 bpm, OUMM=426/87 mmhg, SpO2=97 %, Resp=11 B/min 02:22 PM HR=75 bpm, BWIT=453/97 mmhg, SpO2=95 %, Resp=16 B/min 02:25 PM Site status No bleeding/hematoma - Rt Groin as reported by Diane Srinivasan RT (R) at 14:25 tsites 02:25 PM Opsite applied tsites 02:25 PM Patient out of room: 14:25 tsites Complications Complication None Hemodynamics Pressures Site Systolic/A Wave Diastolic/V Wave Mean LV 158 3 12 LV 171 6 14 LV 169 -4 13 AO 158 46 101 AO 156 68 98 Post Procedure Information Blood Pressure: 173/86 mmHg Rhythm: NSR Post procedural instructions were given Closure Device Time Device Success/Fail 08/04/2018 2:12:00 PM V+Pad Successful Site Checks Time Location Status Staff Sheath In? Note 02:25 PM Rt Groin No bleeding/hematoma Diane Srinivasan RT (R) Pulses Time Site Pre-Procedure Post-Procedure Note Bilateral DP & PT 2+ 2:09:00 PM Bilateral DP & PT 2+ Updated by Diane Mcrae RT (R) on 08/04/2018 2:28:31 PM RT Josr electronically signed on 08/04/2018 2:29:01 PM with status of Final
--- NOTE | 2018-08-04 15:20 | Electrocardiograph Report ---
[place] [id number] Test Date: 2018-08-03 Pat Name: Keila Hess Department: 109 Room: 2A14 Gender: F [employer] Administrator: : 1960 Requested By: Christ Pineda Order Number: [id number] Reading MD: Ronald Baig Measurements Intervals [place] Rate: 74 P: 40 ME: 115 QRS: -19 QRSD: 92 T: 1 QT: 389 QTc: 416 Interpretive Statements SINUS RHYTHM WITH SHORT ME INTERVAL MODERATE VOLTAGE CRITERIA FOR LVH, CONSIDER NORMAL VARIANT Electronically Signed On 08-04-2018 15:18:41 EST by Ronald Baig
[2018-08-04] MEDS: 0.9 % Sodium Chloride 1,000 ML IVC SCH (15:52)
[2018-08-05] MEDS: 0.9 % Sodium Chloride 1,000 ML IVC SCH ×2 (01:05→12:39)
[2018-08-05 04:35] LABS: Basophils % 0.3 %; Eosinophils # 0.1 K/mcL (0.0-0.6); Hematocrit 36.2 % (35.3-44.9); Hemoglobin 11.7 g/dL (11.5-15.4); Immature Granulocytes % 0.4 % (0-4); Lymphocytes # 2.8 K/mcL (0.6-4.6); Lymphocytes % 29.4 %; Mean Corpuscular HGB Conc 32.3 g/dL (31.6-35.5); Mean Corpuscular Hemoglobin 29.3 pg (28.0-33.3); Mean Corpuscular Volume 90.7 fL (83.0-100.0); Mean Platelet Volume 10.6 fL (9.4-12.4); Monocytes # 0.6 K/mcL (0.0-1.3); Monocytes % 6.5 %; Neutrophils # 5.9 K/mcL (1.6-8.9); Platelet Count 327 K/mcL (140-400); Red Blood Count 3.99 M/mcL (3.82-4.97); Red Cell Distribution Width 12.3 % (11.5-14.5); Segmented Neutrophils % 62.4 %
[2018-08-05 04:43] LABS: BUN/Creatinine Ratio 22 (6-26); Blood Urea Nitrogen 13 mg/dL (8-23); Calcium 8.7 mg/dL (8.6-10.3); Carbon Dioxide 25 mEq/L (23-29); Chloride 109 mEq/L (98-107); Glucose 109 mg/dL (70-105); Magnesium 1.9 mg/dL (1.6-2.6); Osmolality,Calculated 291 (280-300); Phosphorous 3.4 mg/dL (2.7-4.5); Potassium 3.9 mEq/L (3.5-5.1); Sodium 140 mEq/L (136-145); eGFR For Non-African Americans > 60 (> 60)
[2018-08-05] MEDS: Levothyroxine 25 MCG TABLET PO SCH (05:22)
[2018-08-05] MEDS: Insulin LISPRO 300 UNITS/3 ML VIAL SQ SCH ×2 (07:31→12:38)
[2018-08-05] MEDS: Metoprolol XL (24 HR) Succ 25 MG TAB.ER.24H PO SCH (08:09)
[2018-08-05] MEDS: Aspirin Enteric Coated 81 MG Tablet PO SCH (08:09)
[2018-08-05 11:18] VITALS: BP 151/79
[2018-08-05] MEDS: Nitroglycerin 25 MG/250 ML INFUS..BTL IVC SCH (12:39)
[2018-08-05] MEDS: Heparin 25,000 UNIT/500 ML D5W 25,000 UNIT/500 ML BAG IVC SCH (12:39)
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
== END 2018-08-05 15:13 | disposition home or self-care (01) | DRG 287 ==
LOC: 2ANU → SUATTDRO 21:18
PROVIDERS: ADMIT Family Medicine; ATTEND Hospitalist